=== PATIENT | female | born 1950 | race Caucasian/White ===

== ENCOUNTER 2017-05-07 06:49 | Emergency (ER) | payer OTHER ==
--- NOTE | ~2017-05-07 | CR72 ---
[facility] A Service of [facility] RADIOLOGY TEXT RESULTS PATIENT: MELBA HUGHES LOCATION: [facility] : 49 UNIT #: [id number] AGE: [address]: Tyler Wild MD SEX: F ORDER DR: [id number] [facility] [address] [place], [place] [address] [id number] MR#: [id number] Acc #: [id number] NAME: MELBA HUGHES. : 1950 SEX: F STUDY DATE/TIME: 05/07/2017 7:58 UNIT: [facility] ROOM: STUDY DESCRIPTION: CR Chest Single View Portable Attending Physician: Tyler Wild M.D. Ordering Physician: Tyler Wild M.D. Primary Care Physician: Laure Feliz M.D. MEDICAL IMAGING REPORT This report is preliminary unless electronic signature is present EXAM Portable chest HISTORY Cough and difficulty breathing worsening over the past 2 weeks. TECHNIQUE A single AP view of the chest was obtained. FINDINGS Bony structures are unremarkable. Heart size is upper limits of normal. No abnormal mediastinal widening is seen. Pulmonary vascular markings are normal. There is a questionable 1 cm nodule in the left upper lung field. The density is at the site where 2 ribs intersect. Recommend further evaluation of this area with shallow oblique views. No pleural fluid is seen. IMPRESSION 1. Normal vascular markings. No focal infiltrates are seen. 2. Question of a 1 cm nodule in the left upper lung field versus rib shadow artifact. This could be better evaluated with bilateral shallow oblique views to separate the ribs in this area. Dictated by... Morris Lazo M.D. THIS IS AN ELECTRONICALLY VERIFIED REPORT Morris Lazo M.D. at 05/07/2017 4:49 PM RLF/ni TD: 05/07/2017 14:06 [facility] A Service [facility] RADIOLOGY TEXT RESULTS PATIENT: MELBA HUGHES LOCATION: [facility] : 49 UNIT #: [id number] AGE: [address]: Tyler Wild MD SEX: F ORDER DR: IGNACIA #: [id number] MEDICAL IMAGING REPORT Page 1 of 1 COPY
--- NOTE | ~2017-05-07 | EKG ---
PATIENT: MELBA HUGHES UNIT #: [id number] Ventricular Rate: 63 BPM Atrial Rate: 63 BPM P-R Interval: 184 ms QRS Duration: 108 ms Q-T Interval: 422 ms QTC Calculation(Bezet): 431 ms P [place]: 66 degrees Calculated R [place]: 69 degrees Calculated T [place]: 26 degrees Diagnosis Line: Normal sinus rhythm Diagnosis Line: Normal ECG Diagnosis Line: Diagnosis Line: Confirmed by ERICKSON HALL MD ([id number]) on 05/12/2017 Diagnosis Line: 2:31:35 PM INTERPRETING MD: ISABEL ZIMMERMAN
[2017-05-07 08:00] LABS: POC - CKMB 3.5 ng/mL (0.0-7.9); POC - TROPONIN <0.05 ng/mL (<=0.05)
[2017-05-07 08:03] LABS: BASOPHIL# 0.1 X10e3 (0-0.3); BASOPHIL% 0.7 % (0-2.5); EOSINOPHIL# 1.3 X10e3 (0-0.7); EOSINOPHIL% 14.5 % (0.0-7.0); HEMATOCRIT 40.2 % (35.0-45.0); HEMOGLOBIN 13.1 gm/dL (12.0-16.0); LYMPHOCYTE# 2.1 X10e3 (1.0-3.5); LYMPHOCYTE% 22.9 % (17.0-45.0); MEAN CELL VOLUME 92.3 FL (83-96); MEAN CORPUSCULAR HEMOGLOBIN 30.1 PG (28-34); MEAN CORPUSCULAR HGB CONC 32.6 g/dL (30-36); MEAN PLATELET VOLUME 10.1 FL (6.5-11.5); MONOCYTE# 0.5 X10e3 (0-1.0); NEUTROPHIL% 55.9 % (40-75); PLATELET COUNT 229 X10e3 (140-420); RED BLOOD COUNT 4.35 X10e (3.90-5.30); RED CELL DISTRIBUTION WIDTH 13.9 % (11.0-15.5)
[2017-05-07 08:19] LABS: DIFF IND NO
[2017-05-07 08:30] LABS: ALBUMIN SERUM 4.1 g/dL (3.5-5.0); BILIRUBIN, DIRECT 0.1 mg/dL (0.0-0.2); BILIRUBIN,INDIRECT 0.7 mg/dL (0.0-0.9); BILIRUBIN,TOTAL 0.8 mg/dL (0.2-2.0); BUN/CREATININE RATIO 19.09; CALCIUM SERUM 9.5 mg/dL (8.4-10.2); CREATININE SERUM 1.1 mg/dL (0.6-1.4); GLOM FILT RATE Estimated 51.9 mL/min (>60); POTASSIUM 3.7 mmol/L (3.5-5.1); PROTEIN TOTAL SERUM 7.5 g/dL (6.0-8.3)
[2017-05-07 09:30] LABS: POC - CKMB 4.4 ng/mL (0.0-7.9); POC - TROPONIN <0.05 ng/mL (<=0.05)
[2017-05-08] MEDS ORDERED: ZITHROMAX PO (13:18)
[2017-05-08] MEDS ORDERED: TESSALON PERLE100 M1 PO (13:21)
[2017-05-08] MEDS ORDERED: PREDNISONE10 MG PO (13:21)
[2017-05-08] MEDS ORDERED: VOLTAREN75 MG PO (13:22)
[2017-05-08] MEDS ORDERED: EFFEXOR XR75 MG PO (13:22)
[2017-05-08] MEDS ORDERED: BENAZEPRIL HCL40 MG PO (13:22)
[2017-05-08] MEDS ORDERED: MONTELUKAST SOD10 MG PO (13:23)
[2017-05-08] MEDS ORDERED: HYDROCHLOROTHIA25 MG PO (13:23)
[2017-05-08] MEDS ORDERED: BAYER CHEWABLE81 MG PO (13:23)
[2017-05-08] MEDS ORDERED: ZOCOR20 MG PO (13:23)
[2017-05-08] MEDS ORDERED: ZYRTEC10 M1 PO (13:24)
== END 2017-05-07 11:14 | disposition home or self-care (01) ==
LOC: CED 06:49
PROVIDERS: Emergency Medicine
DX: J44.9 Chronic obstructive pulmonary disease, unspecified (principal); I10 Essential (primary) hypertension; E11.9 Type 2 diabetes mellitus without complications; F17.210 Nicotine dependence, cigarettes, uncomplicated
CPT/HCPCS: 36415; 71010; 80048; 80076; 82553; 84484; 85025; 93005; 94640; 96374; 99285; J2930

== ENCOUNTER 2017-05-08 12:31 | Inpatient (IN) | payer OTHER ==
--- NOTE | ~2017-05-08 | OR ---
Unit #: [id number] #: [id number] Patient: MELBA HUGHES [id number] [address] [address] [id number] I MR#: [id number] NAME: MELBA HUGHES. ROOM: 327 Date of Procedure: Admission Date: 05/08/2017 Surgeon: Sirena Marrufo M.D. : 1950 Attending Physician: Jaz Rajan M.D. Primary Care Physician: Laure Feliz M.D. PROCEDURE OPERATIVE NOTE PROCEDURE PERFORMED Diagnostic bronchoscopy. INDICATION Pneumonia. PRE-PROCEDURE DIAGNOSIS Pneumonia. POST PROCEDURE DIAGNOSIS Pneumonia. DETAILS OF THE PROCEDURE After taking consent from the patient explaining the risks and benefits, the patient was placed in a proper position. Bronchoscope introduced through the oral cavity. Vocal cords appeared to be symmetrically moving towards the midline. Trachea was normal. Araceli was sharp. We examined the right upper, right middle, right lower lobe, left upper lobe, lingula and left lower lobe. Thick mucous plugs in both lungs which were therapeutically suctioned. Then, we did a bronchoalveolar lavage in the right middle lobe area with 100 mL of saline in and 20 mL back. No endobronchial lesion was found. The patient tolerated the procedure very well. No complications happened. Dictated by... Génesis Danielle/kathy TD: 05/10/2017 10:54 JOB #: [id number] Unit #: [id number] #: [id number] Patient: MELBA HUGHES PROCEDURE OPERATIVE NOTE Page 1 of 1 X Sirena Marrufo MD PROCEDURE OPERATIVE NOTE
--- NOTE | ~2017-05-08 | DS ---
Unit #: [id number] #: [id number] Patient: MELBA HUGHES [id number] [address] [address] [id number] I MR#: [id number] NAME: MELBA HUGHES. ROOM: 327 Age: 66 Sex: F Admission Date: 05/08/2017 : 1950 Discharge Date: 05/11/2017 Attending Physician: Jaz Rajan M.D. Primary Care Physician: Laure Feliz M.D. DISCHARGE SUMMARY FINAL DIAGNOSIS 1. Acute hypoxic respiratory failure. 2. Acute exacerbation of chronic obstructive pulmonary disease. 3. Pneumonia. 4. Leukocytosis, which has improved. 5. Depression. 6. Tobacco abuse. 7. Hypertension. 8. Hyperlipidemia. DISCHARGE MEDICATIONS 1. Prednisone, tapering dose. 2. Symbicort 160/4.5 one puff twice a day. 3. Effexor 75 mg p.o. every day. 4. Zyrtec 10 mg every day. 5. Tessalon Perles on a p.r.n. basis for cough. 6. Hydrochlorothiazide 25 mg every day. 7. Zocor 20 mg at bedtime. 8. Benazepril 40 mg every day. 9. Singulair 10 mg every day. 10. Aspirin 81 mg every day. 11. Diclofenac on p.r.n. basis. 12. Omnicef 300 mg p.o. b.i.d. (please note patient received IV ceftriaxone and IV Zithromax during hospitalization.) CONSULTATIONS DURING HOSPITALIZATION 1. Dr. Marrufo from pulmonary services. 2. Primary care provider, Dr. Feliz. PROCEDURE PERFORMED DURING HOSPITALIZATION Diagnostic bronchoscopy, which was done by Dr. Marrufo on 05/10/17. Vocal cords appeared to be symmetrically moving towards the midline. Trachea was normal. Carinii was sharp. Right upper, right middle, right lower lobe, left upper lobe, lingula, and left lower lobe were examined. Thick mucous plugs in both lungs, which were therapeutically suctioned. Bronchoalveolar lavage was done. No endobronchial lesions were found. HOSPITAL COURSE Ms. Chandra is a 66-year-old female who was admitted to the hospital with shortness of breath and coughing and wheezing. Patient was diagnosed with pneumonia as outpatient and received p.o. antibiotics. She did not feel better, came to ER, and was admitted. Patient was diagnosed with acute hypoxic respiratory failure, pneumonia, acute COPD exacerbation, and hypokalemia. Patient was treated with IV Rocephin and IV Zithromax. IV Unit #: [id number] #: [id number] Patient: MELBA HUGHES Solu-Medrol was given for bronchospasm. Patient received bronchodilator nebulizer treatment in the hospital. Patient is doing much better at this time and antibiotics and steroids are being changed to p.o. Patient did have hypokalemia on admission, which has resolved. Potassium replacement was done. Leukocytosis most likely is secondary to steroid. It is tapering down. Recent WBC count is 17. That needs to be checked as outpatient. EXAMINATION ON DISCHARGE VITAL SIGNS: Blood pressure 126/70, respiratory rate 18, pulse is 61, temperature 97.4, and oxygen saturation is 95%. HEENT: Head is normocephalic. CHEST: Fair air entry. Few wheezing heart. CVS: S1 and S2 positive. Regular rhythm. ABDOMEN: Soft. DISCHARGE INSTRUCTIONS 1. Patient is being discharged home in stable condition. 2. Follow up with primary care provider in one week. 3. Follow up with Dr. Marrufo in two weeks. 4. Please note bronch culture is pending at this time. That needs to be followed up as outpatient. Dictated by... Génesis Goyal TD: 05/12/2017 09:39 JOB #: [id number] DISCHARGE SUMMARY Page 1 of 1 X Jaz Rajan MD X DISCHARGE SUMMARY
--- NOTE | ~2017-05-08 | CT16 ---
[facility] A Service of [facility] RADIOLOGY TEXT RESULTS PATIENT: MELBA HUGHES LOCATION: [facility] 327- : 49 UNIT #: [id number] AGE: [address]: Jaz Rajan MD SEX: F ORDER DR: [id number] [facility] [address] [place], [place] [address] [id number] I MR#: [id number] Acc #: [id number] NAME: MELBA HUGHES. : 1950 SEX: F STUDY DATE/TIME: 05/08/2017 15:20 UNIT: [address] ROOM: [facility] STUDY DESCRIPTION: CT Angio Chest for PE Attending Physician: Jaz Rajan M.D. Ordering Physician: Tyler Wild M.D. Primary Care Physician: Laure Feliz M.D. MEDICAL IMAGING REPORT This report is preliminary unless electronic signature is present EXAM CT angiogram chest with IV contrast. HISTORY Shortness of air for 1 week. Cough. TECHNIQUE IV contrast and CT angiogram of the chest was performed with 3-D reconstructions. This CT exam was performed with one or more of the following radiation dose reduction techniques: automatic exposure control, adjustment of mA and/or kV according to patient size, and iterative reconstruction. FINDINGS Moderate patchy subsegmental infiltrate in the anterior right upper lobe is nonspecific but could be secondary to pneumonia. There is also probable minimal subsegmental atelectasis in the medial right middle lobe and in the lingula. Mild emphysema primarily in the upper lobes. No pulmonary embolus is identified. Sensitivity is partly limited in evaluating the lower lobe pulmonary arteries due to respiratory motion artifact. Normal caliber central pulmonary arteries. No adenopathy. Partly calcified right paratracheal nodes and additional small calcified bilateral hilar nodes. Probable hypodense nodularity in the mid and lower right thyroid lobe measuring up to approximately 1.4 cm. Suggest further evaluation with thyroid ultrasound when clinically appropriate. Left thyroid lobectomy. IMPRESSION 1. No pulmonary embolus is identified. 2. Sensitivity is partly limited in evaluating the lower lobe pulmonary arteries due to respiratory motion artifact. 3. Siso-gi-xnmmauau patchy infiltrates in the anterior and inferior STS. [facility] A Service of [facility] RADIOLOGY TEXT RESULTS PATIENT: MELBA HUGHES LOCATION: [facility] 327-01 : [birth year] UNIT #: [id number] AGE: [address]: Jaz Rajan MD SEX: F ORDER DR: right upper lobe. Although nonspecific, this could be due to pneumonia. 4. Additional mild subsegmental atelectasis in the right middle lobe and in the lingula. 5. Probable nodularity in the right thyroid lobe measuring up to approximately 1.4 cm. Suggest further evaluation with thyroid ultrasound when clinically appropriate. Dictated by... Sylvain Kaminski M.D. THIS IS AN ELECTRONICALLY VERIFIED REPORT Sylvain Kaminski M.D. at 05/09/2017 10:35 PM ROLA/orlando TD: 05/09/2017 01:09 JOB #: [id number] MEDICAL IMAGING REPORT Page 1 of 1 COPY
--- NOTE | ~2017-05-08 | CO ---
Unit #: [id number] #: [id number] Patient: MELBA HUGHES [id number] [address] [address] [id number] I MR#: [id number] NAME: MELBA HUGHES. ROOM: 327 Age: 66 Sex: F Admission Date: 05/08/2017 : 1950 Attending Physician: Jaz Rajan M.D. Primary Care Physician: Laure Feliz M.D. CONSULTATION REPORT CHIEF COMPLAINT Shortness of breath. HISTORY OF PRESENT ILLNESS 66-year-old female with a past medical history of COPD, chronic bronchitis, depression, hypertension, presents with a complaint of cough, shortness of breath, increasing sputum production, chest discomfort, was recently treated with bronchitis and has not been getting any relief. Continues to smoke. CT chest PE protocol was done. No pulmonary embolism. Showed right upper lobe infiltrates. I am seeing the patient at bedside. Denies any nausea, vomiting, diarrhea. REVIEW OF SYSTEMS Positive for pallor. No edema, no cyanosis, no jaundice. PAST MEDICAL HISTORY 1. Hypertension. 2. COPD. 3. Depression. 4. Tobacco use. MEDICATIONS 1. Zithromax. 2. Prednisone. 3. Tessalon Perles. 4. Diclofenac. 5. Effexor. 6. Benazepril. 7. Hydrochlorothiazide. 8. Veronica aspirin. 9. Zocor. 10. Zyrtec. SURGICAL HISTORY 1. Thyroid surgery. 2. Fibroid tumor surgery. SOCIAL HISTORY One pack smoker per day. No alcohol or drug abuse. PHYSICAL EXAMINATION VITAL SIGNS: Temperature 98, pulse 87, respirations 12, blood pressure Unit #: [id number] #: [id number] Patient: MELBA HUGHES 130/70. NEUROLOGICAL: Awake, alert, oriented. No neuro deficit. HEENT: PERRLA. NECK: Supple. No JVD. CHEST: Bilateral air entry, bilateral mild rhonchi. GI: Nontender, soft. Bowel sounds positive. EXTREMITIES: No edema. SKIN: No rashes, no ulcers. LYMPHATIC: No lymphadenopathy. DIAGNOSTIC STUDIES Labs and imaging have been reviewed. ASSESSMENT AND PLAN 1. Right upper lobe pneumonia. 2. Acute exacerbation of chronic obstructive pulmonary disease. 3. Acute bronchitis. 4. Acute hypoxic respiratory failure. 5. Tobacco use. Plan is to admit the patient. Continue patient on current antibiotics including Rocephin, Zithromax, IV steroids, bronchodilators, GI and DVT prophylaxis, procalcitonin. Urine for legionella and pneumococcal antigen. Consideration for bronchoscopy. Smoking cessation counseling has been done. The patient will be closely monitored. Please see orders for detailed plan. Dictated by... Génesis Danielle/kathy TD: 05/10/2017 05:17 JOB #: [id number] CONSULTATION REPORT Page 1 of 1 X Sirena Marrufo MD X CONSULTATION REPORT
--- NOTE | ~2017-05-08 | CR72 ---
[facility] A Service of [facility] RADIOLOGY TEXT RESULTS PATIENT: MELBA HUGHES LOCATION: [facility] - : 49 UNIT #: [id number] AGE: [address]: Jaz Rajan MD SEX: F ORDER DR: [id number] [facility] [address] [place], [place] [address] [id number] I MR#: [id number] Acc #: [id number] NAME: MELBA HUGHES. : 1950 SEX: F STUDY DATE/TIME: 05/08/2017 13:16 UNIT: [address] ROOM: [facility] STUDY DESCRIPTION: CR Chest Single View Portable Attending Physician: Jaz Rajan M.D. Ordering Physician: Tyler Wild M.D. Primary Care Physician: Laure Feliz M.D. MEDICAL IMAGING REPORT This report is preliminary unless electronic signature is present EXAM Frontal chest, 05/08/2017. INDICATION 66-year-old female with cough and shortness of air. Symptoms 2 weeks. TECHNIQUE Frontal chest compared with 05/07/2017. FINDINGS Cardiac silhouette within normal limits. The vascularity is unremarkable. No effusion. There is a subtle area of faint atelectasis or infiltrate associated with the left heart border suggesting a lingular process. Imaging followup to resolution after appropriate therapy is recommended. No pneumothorax. Previously-described potential nodule in the upper lung zone on the left has no distinct correlate on today's examination and may have been artifactual. Please see the prior chest x-ray for further details. If concern for an underlying nodule persists, CT would be recommend for further characterization. IMPRESSION 1. Subtle opacity obscuring the left heart border suspicious for early lingular pneumonia or at least dense atelectasis. Imaging followup to resolution after appropriate therapy is recommended. 2. There is no evidence of pneumothorax. 3. Previously described nodular density in the upper lung zone on the left is not visible on the current examination. See discussion above regarding further evaluation with a chest CT if clinically desired or warranted. [facility] A Service of [facility] RADIOLOGY TEXT RESULTS PATIENT: MELBA HUGHES LOCATION: [place] [address] : [birth year] UNIT #: [id number] AGE: [address]: Jaz Rajan MD SEX: F ORDER DR: Dictated by... Abdelrahman Aguirre M.D. THIS IS AN ELECTRONICALLY VERIFIED REPORT Abdelrahman Aguirre M.D. at 05/09/2017 8:47 AM Tammie TD: 05/08/2017 22:59 JOB #: [id number] MEDICAL IMAGING REPORT Page 1 of 1 COPY
--- NOTE | ~2017-05-08 | EKG ---
PATIENT: MELBA HUGHES UNIT #: [id number] Ventricular Rate: 72 BPM Atrial Rate: 72 BPM P-R Interval: 168 ms QRS Duration: 98 ms Q-T Interval: 400 ms QTC Calculation(Bezet): 438 ms P [place]: 91 degrees Calculated R [place]: 34 degrees Calculated T [place]: 12 degrees Diagnosis Line: Normal sinus rhythm Diagnosis Line: Normal ECG Diagnosis Line: When compared with ECG of 07-MAY-2017 07:24, Diagnosis Line: (unconfirmed) Diagnosis Line: No significant change was found Diagnosis Line: Confirmed by ERICKSON HALL MD ([id number]) on 05/12/2017 Diagnosis Line: 2:47:41 PM INTERPRETING MD: ISABEL ZIMMERMAN
--- NOTE | ~2017-05-08 | HP ---
Unit #: [id number] #: [id number] Patient: MELBA HUGHES [id number] [address] [place], [place] [address] [id number] I MR#: [id number] NAME: MELBA HUGHES. ROOM: 327 Age: 66 Sex: F Admission Date: 05/08/2017 : 1950 Attending Physician: Jaz Rajan M.D. Primary Care Physician: Laure Feliz M.D. HISTORY AND PHYSICAL REVISED REPORT CHIEF COMPLAINT Shortness of breath, chest tightness. HISTORY OF PRESENTING ILLNESS Miss Chandra is a 66-year-old female who was seen by Dr. Feliz about apw-oxp-x-half weeks ago, was diagnosed with pneumonia and was given antibiotic. Patient does not remember the name of antibiotic but she was taking it twice a day and she finished on . She did well for two to three days but Wednesday again she started having cough with some sputum production, chest tightness, shortness of breath. She came to ER yesterday, was diagnosed with bronchitis and discharged on prednisone but she did not do well at all. She returned back today and is being admitted to hospital with pneumonia diagnosis and for IV antibiotic and failed p.o. antibiotic therapy. Patient is a smoker, smokes less than one pack per day, has been smoking for a long period of time. Patient does have a history of COPD. She does have nebulizer treatment at home. She does not complain of chills or fever but she says at nighttime she was just kind of shivering, does not complain of any chest pain, does not complain of any nausea and vomiting. She does complain of some abdominal pain but she thinks it is secondary to cough. No complaint of constipation or diarrhea and she did have some dizziness but no syncopal episode. PAST MEDICAL HISTORY 1. History of hypertension. 2. COPD. 3. Depression. 4. Tobacco abuse. HOME MEDICATION 1. Zithromax 250 daily. 2. Prednisone 10 mg daily. 3. Tessalon Perles 100 mg t.i.d. 4. Diclofenac 75 mg b.i.d. 5. Effexor 75 mg daily. 6. Benazepril 40 mg daily. 7. Hydrochlorothiazide 25 mg daily. 8. Veronica chewable 81 mg daily. 9. Singulair 10 mg q.h.s. 10. Zocor 20 mg q.h.s. 11. Zyrtec 10 mg nightly. PAST SURGICAL HISTORY Unit #: [id number] #: [id number] Patient: MELBA HUGHES History of thyroid surgery and fibroid tumor. ALLERGIES No known drug allergies. FAMILY HISTORY Patient's father had COPD and also coronary artery disease. SOCIAL HISTORY Patient smokes one pack per day for a long period of time, no history of alcohol abuse or drug abuse. REVIEW OF SYMPTOMS As per history of presenting illness. PHYSICAL EXAMINATION VITAL SIGNS: Patient is being examined in ER bed 1. Blood pressure is 128/65, respiratory rate 22, pulse is 80, temperature 98.8, oxygen saturation is 97%. HEENT: Head is normocephalic. Eye movements are normal. NECK: Neck is supple. CHEST: Has decreased air entry. Bilateral wheezing is heard. Crackles are heard on the right lower lobe. CVS: S1, S2 positive, regular rhythm, tachycardia. ABDOMEN: Soft. No tenderness. No rigidity. No rebound. No organomegaly. EXTREMITIES: Pulses are palpable. Negative edema. [employer]ER: Patient is awake, alert and oriented x3. No focal neurological deficit. DIAGNOSTIC STUDIES LABORATORY WORKUP: Troponin less than 0.05, sodium 136, potassium 3.3, chloride 101, BUN 19, creatinine 0.8, liver enzymes are stable, CPK 490, WBC 25.6, hemoglobin 12.4, hematocrit 38.4 and platelet count of 214. IMAGING: Chest x-ray PA one view was done which shows normal vascular marking. No focal infiltrates are seen. Question of a 1 cm nodule in the left upper lung field versus rib shadow artifact. ASSESSMENT Patient is being admitted to a telemetry unit with: 1. Pneumonia. 2. Acute chronic obstructive pulmonary disease exacerbation. 3. Hypokalemia. 4. Tobacco abuse. 5. Leukocytosis. 6. Hypertension. 7. Depression. PLAN Plan is admit to telemetry unit. IV Rocephin 1 g q.24 h. is being started. IV Zithromax 500 daily is being started. IV Solu-Medrol 60 mg q.6 h. Mini-neb treatment q.i.d. Home medications have been reviewed and adjusted. Potassium is going to be replaced. Tobacco cessation counseling has been done. Patient does not want any nicotine patch at this time. According to her, she has not smoked for five days or so. DVT prophylaxis is being started with Lovenox 40 mg subcu daily. Please refer to progress note for further orders. Unit #: [id number] #: [id number] Patient: MELBA HUGHES Dictated by Génesis Goyal/alvin TD: 05/08/2017 20:42 JOB #: [id number] CC: Sovera/invision Please Delete HISTORY AND PHYSICAL Page 1 of 1 X Jaz Rajan MD HISTORY AND PHYSICAL
[2017-05-08] MEDS ORDERED: ZITHROMAX PO (13:18)
[2017-05-08] MEDS ORDERED: PREDNISONE10 MG PO (13:21)
[2017-05-08] MEDS ORDERED: TESSALON PERLE100 M1 PO (13:21)
[2017-05-08] MEDS ORDERED: EFFEXOR XR75 MG PO (13:22)
[2017-05-08] MEDS ORDERED: BENAZEPRIL HCL40 MG PO (13:22)
[2017-05-08] MEDS ORDERED: VOLTAREN75 MG PO (13:22)
[2017-05-08] MEDS ORDERED: BAYER CHEWABLE81 MG PO (13:23)
[2017-05-08] MEDS ORDERED: ZOCOR20 MG PO (13:23)
[2017-05-08] MEDS ORDERED: MONTELUKAST SOD10 MG PO (13:23)
[2017-05-08] MEDS ORDERED: HYDROCHLOROTHIA25 MG PO (13:23)
[2017-05-08] MEDS ORDERED: ZYRTEC10 M1 PO (13:24)
[2017-05-08 13:35] LABS: POC - CKMB 19.9 ng/mL (0.0-7.9); POC - TROPONIN <0.05 ng/mL (<=0.05)
[2017-05-08 14:10] LABS: ALBUMIN SERUM 4.2 g/dL (3.5-5.0); BILIRUBIN, DIRECT 0.1 mg/dL (0.0-0.2); BILIRUBIN,INDIRECT 0.3 mg/dL (0.0-0.9); BILIRUBIN,TOTAL 0.4 mg/dL (0.2-2.0); BUN/CREATININE RATIO 23.75; CALCIUM SERUM 9.7 mg/dL (8.4-10.2); CREATININE SERUM 0.8 mg/dL (0.6-1.4); GLOM FILT RATE Estimated 76.4 mL/min (>60); POTASSIUM 3.3 mmol/L (3.5-5.1); PROTEIN TOTAL SERUM 7.7 g/dL (6.0-8.3)
[2017-05-08 14:23] LABS: BASOPHIL% 0.1 % (0-2.5); HEMATOCRIT 38.4 % (35.0-45.0); HEMOGLOBIN 12.4 gm/dL (12.0-16.0); LYMPHOCYTE# 1.1 X10e3 (1.0-3.5); LYMPHOCYTE% 4.4 % (17.0-45.0); MEAN CELL VOLUME 92.5 FL (83-96); MEAN CORPUSCULAR HEMOGLOBIN 29.9 PG (28-34); MEAN CORPUSCULAR HGB CONC 32.4 g/dL (30-36); MEAN PLATELET VOLUME 10.4 FL (6.5-11.5); MONOCYTE# 1.1 X10e3 (0-1.0); MONOCYTE% 4.4 % (3.0-12.0); NEUTROPHIL# 23.3 X10e3 (1.5-7.1); NEUTROPHIL% 91.1 % (40-75); PLATELET COUNT 214 X10e3 (140-420); RED BLOOD COUNT 4.15 X10e (3.90-5.30)
[2017-05-08 14:26] LABS: DIFF IND YES; WHITE BLOOD COUNT 25.6 X10e3 (4.0-10.5)
[2017-05-08 15:23] LABS: ANISOCYTOSIS SL; PLATELET ESTIMATE NORMAL (NORMAL)
[2017-05-09 06:53] LABS: HEMATOCRIT 38.5 % (35.0-45.0); HEMOGLOBIN 12.4 gm/dL (12.0-16.0); MEAN CELL VOLUME 92.8 FL (83-96); MEAN CORPUSCULAR HEMOGLOBIN 29.8 PG (28-34); MEAN CORPUSCULAR HGB CONC 32.1 g/dL (30-36); MEAN PLATELET VOLUME 10.4 FL (6.5-11.5); RED BLOOD COUNT 4.15 X10e (3.90-5.30); RED CELL DISTRIBUTION WIDTH 13.9 % (11.0-15.5); WHITE BLOOD COUNT 22.7 X10e3 (4.0-10.5)
[2017-05-09 07:00] LABS: BUN/CREATININE RATIO 21.11; CALCIUM SERUM 9.9 mg/dL (8.4-10.2); CREATININE SERUM 0.9 mg/dL (0.6-1.4); GLOM FILT RATE Estimated 66.2 mL/min (>60); POTASSIUM 4.6 mmol/L (3.5-5.1)
[2017-05-10 06:14] LABS: HEMATOCRIT 34.7 % (35.0-45.0); HEMOGLOBIN 11.2 gm/dL (12.0-16.0); MEAN CELL VOLUME 91.9 FL (83-96); MEAN CORPUSCULAR HEMOGLOBIN 29.8 PG (28-34); MEAN CORPUSCULAR HGB CONC 32.4 g/dL (30-36); MEAN PLATELET VOLUME 10.7 FL (6.5-11.5); RED BLOOD COUNT 3.77 X10e (3.90-5.30); RED CELL DISTRIBUTION WIDTH 13.9 % (11.0-15.5); WHITE BLOOD COUNT 23.6 X10e3 (4.0-10.5)
[2017-05-10 15:25] LABS: BODY FLUID APPEARANCE HAZY; BODY FLUID SOURCE BRONCHIAL LAVAGE
[2017-05-11 05:52] LABS: HEMATOCRIT 34.6 % (35.0-45.0); HEMOGLOBIN 11.3 gm/dL (12.0-16.0); MEAN CELL VOLUME 92.5 FL (83-96); MEAN CORPUSCULAR HEMOGLOBIN 30.1 PG (28-34); MEAN CORPUSCULAR HGB CONC 32.5 g/dL (30-36); MEAN PLATELET VOLUME 10.5 FL (6.5-11.5); RED BLOOD COUNT 3.74 X10e (3.90-5.30); RED CELL DISTRIBUTION WIDTH 13.8 % (11.0-15.5)
[2017-05-11] MEDS ORDERED: PREDNISONE PO (10:38)
[2017-05-11] MEDS ORDERED: SYMBICORT INH (10:38)
[2017-05-11] MEDS ORDERED: OMNICEF300 M1 PO (10:39)
== END 2017-05-11 11:15 | disposition home or self-care (01) | DRG 166 ==
LOC: CED 12:31 → CEDOF 18:49 → C3A PCU 18:49
PROVIDERS: Emergency Medicine; Internal Medicine; Physician Assistant Medical
PROC: B32TYZZ Computerized Tomography (CT Scan) of Left Pulmonary Artery using Other Contrast (ICD-10-PCS; 2017-05-08)
PROC: B32SYZZ Computerized Tomography (CT Scan) of Right Pulmonary Artery using Other Contrast (ICD-10-PCS; 2017-05-08)
PROC: 0B9M8ZZ Drainage of Bilateral Lungs, Via Natural or Artificial Opening Endoscopic (ICD-10-PCS; principal; 2017-05-10 09:53)
PROC: 0B9D8ZX Drainage of Right Middle Lung Lobe, Via Natural or Artificial Opening Endoscopic, Diagnostic (ICD-10-PCS; 2017-05-10 09:53)
DX: J96.01 Acute respiratory failure with hypoxia (principal); J18.9 Pneumonia, unspecified organism; J44.0 Chronic obstructive pulmonary disease with (acute) lower respiratory infection; I10 Essential (primary) hypertension; D72.829 Elevated white blood cell count, unspecified; E11.9 Type 2 diabetes mellitus without complications; J44.1 Chronic obstructive pulmonary disease with (acute) exacerbation; F17.200 Nicotine dependence, unspecified, uncomplicated; F32.9 Major depressive disorder, single episode, unspecified; E78.5 Hyperlipidemia, unspecified; E87.6 Hypokalemia; Z79.82 Long term (current) use of aspirin; Z83.6 Family history of other diseases of the respiratory system; Z82.49 Family history of ischemic heart disease and other diseases of the circulatory system; T38.0X5A Adverse effect of glucocorticoids and synthetic analogues, initial encounter; Y92.9 Unspecified place or not applicable; M19.90 Unspecified osteoarthritis, unspecified site
CPT/HCPCS: 36415; 71010; 71275; 80048; 80076; 82308; 82550; 82553; 82947; 83880; 84484; 85025; 85027; 87070; 87102; 87116; 87205; 87206; 87252; 87254; 87278; 87449; 87899; 88108; 88305; 88312; 89051; 93005; 94640; 94760; 99285; C9113; J0171; J0456; J0696; J1650; J2920; J2930; Q9967

== ENCOUNTER 2017-06-03 09:54 | Inpatient (IN) | payer OTHER ==
[~2017-06-03] VITALS: Ht 172.7 cm; Wt 78.2 kg
--- NOTE | ~2017-06-03 | DS ---
Unit #: [id number] #: [id number] Patient: MELBA REED [id number] [address] [address] [id number] I MR#: [id number] NAME: MELBA REED ROOM: 579 Age: 66 Sex: F Admission Date: 06/03/2017 : 1950 Discharge Date: 06/07/2017 Attending Physician: Benson Ventura M.D. Primary Care Physician: Laure Feliz M.D. DISCHARGE SUMMARY FINAL DIAGNOSES 1. Acute hypoxic respiratory failure. 2. Acute exacerbation of chronic obstructive pulmonary disease. 3. Hypertension. 4. Depression. 5. Hyperglycemia. Most likely secondary to steroids. The patient does have a history of diabetes mellitus, controlled with diet per the patient. 6. Tobacco abuse. 7. Hypertension. DISCHARGE MEDICATIONS 1. Prednisone tapering dose. 2. Doxycycline 100 mg p.o. b.i.d. until 06/10/2017. 3. Mucinex 600 mg p.o. b.i.d. 4. Nebulizer treatment with albuterol and Atrovent q.i.d. and q.4 h. p.r.n. 5. Home O2 2 liters per nasal cannula. 6. Zyrtec 10 mg daily. 7. Hydrochlorothiazide 25 mg daily. 8. Lotensin 40 mg daily. 9. Singulair 10 mg daily. 10. Glucophage 500 mg b.i.d. 11. Aspirin 81 mg daily. 12. [place] Nasal [place] 4-[address] Marrufo/Dr. Zepeda from pulmonary services. DIAGNOSTIC DATA LABORATORY: On discharge, white blood cell count 14.3, hemoglobin 12.8, hematocrit 39.1, platelets 222, Glucose 182. BMP shows sodium 140, potassium 3.8, chloride 102, BUN 16, creatinine 0.7, calcium 10.0. Blood cultures times two no growth. Hemoglobin A1c 6.0. HOSPITAL COURSE Ms. Reed is a 66-year-old female who was admitted with shortness of breath and chest tightness. The patient was recently discharged from the hospital. The patient continued to smoke at home. Diagnosed with acute exacerbation of chronic obstructive pulmonary disease. Again the patient was treated with bronchodilator, IV antibiotics and nebulizer treatment. She is feeling much better at this time. Six minute walking test was performed and saturation dropped to 79% after 3 minutes. The patient is being arranged 2 liters nasal cannula for home. Nebulizer treatment is Unit #: [id number] #: [id number] Patient: MELBA REED being arranged for home. Tobacco cessation counseling has been done. The patient will be discharged one nicotine patches. The patient verbalizes understanding. PHYSICAL EXAMINATION VITALS: On discharge, blood pressure 156/78, respiratory rate 16, pulse 96, temperature 97.8, oxygen saturation 93%. HEENT: Head is normocephalic. CHEST: Fair air entry. HEART: Regular rhythm. ABDOMEN: Soft. EXTREMITIES: Negative edema. DISCHARGE INSTRUCTIONS 1. The patient is being discharged home in stable condition. 2. Medications as per medication reconciliation. 3. Follow up with primary care provider in one week. 4. Tobacco cessation counseling done. 5. CBC and BMP in one week. 6. Check blood sugars at home. Dictated by... Génesis Goyal TD: 06/09/2017 09:07 JOB #: [id number] DISCHARGE SUMMARY Page 1 of 1 X Jaz Rajan MD X DISCHARGE SUMMARY
--- NOTE | ~2017-06-03 | CR72 ---
[facility] A Service of [facility] RADIOLOGY TEXT RESULTS PATIENT: MELBA HUGHES LOCATION: [facility] [address] : [birth year] UNIT #: [id number] AGE: [address]: Benson Ventura MD SEX: F ORDER DR: [id number] [facility] [address] [place], [place] [address] [id number] MR#: [id number] Acc #: [id number] NAME: MELBA HUGHES : 1950 SEX: F STUDY DATE/TIME: 06/03/2017 UNIT: [facility] ROOM: STUDY DESCRIPTION: CR Chest Single View Portable Attending Physician: Deisi Antunez M.D. Ordering Physician: Deisi Antunez M.D. Primary Care Physician: Laure Feliz M.D. MEDICAL IMAGING REPORT This report is preliminary unless electronic signature is present EXAM Chest portable 06/03/2017 1035 hours HISTORY 66-year-old woman complaining of shortness of air today. History of hypertension and diabetes. COMPARISON CT chest and chest x-ray 05/08/2017 FINDINGS Single portable upright chest demonstrates normal cardiac, mediastinal and hilar contours. Pulmonary vascularity is normal. There is no definite acute pulmonary density or pleural effusion. IMPRESSION No acute cardiopulmonary findings. Dictated by... Lois Woodruff M.D. THIS IS AN ELECTRONICALLY VERIFIED REPORT Lois Woodruff M.D. at 06/03/2017 2:31 PM Haleigh TD: 06/03/2017 10:58 JOB #: [id number] MEDICAL IMAGING REPORT Page 1 of 1 COPY
--- NOTE | ~2017-06-03 | HP ---
Unit #: [id number] #: [id number] Patient: MELBA REED [id number] [address] [place], [place] [address] [id number] I MR#: [id number] NAME: MELBA REED ROOM: 579 Age: 66 Sex: F Admission Date: 06/03/2017 : 1950 Attending Physician: Benson Ventura M.D. Primary Care Physician: Laure Feliz M.D. HISTORY AND PHYSICAL ADMISSION DIAGNOSES 1. Acute hypoxic respiratory failure. 2. Exacerbation of chronic obstructive pulmonary disease. 3. Hypertension. 4. Dyslipidemia. 5. Depression. HISTORY OF PRESENT ILLNESS Ms. Reed is a 66-year-old female patient of Dr. Feliz, well known to us secondary to prior admissions, who was recently discharged from our service at the beginning of this month. She continued with the complaints of increasing shortness of air and dyspnea, along with some nonproductive cough. Denies any fever or chills. Denies any headache, dizziness. Denies any chest pain, nausea, vomiting, diarrhea or abdominal pain. REVIEW OF SYSTEMS This patient is negative except as above. PAST MEDICAL HISTORY Secondary to a history of hypertension, COPD, depression, and diabetes. PAST SURGICAL HISTORY Significant for uterine fibroid surgery and thyroid surgery. HOME MEDICATIONS She takes diclofenac, benazepril, hydrochlorothiazide, baby aspirin, Singulair, and Zyrtec. ALLERGIES No known drug allergies. SOCIAL HISTORY Continues to smoke. Denies any alcohol or illicit drugs. FAMILY HISTORY Unremarkable. PHYSICAL EXAMINATION GENERAL APPEARANCE: Patient is a 66-year-old, female in no acute distress. VITAL SIGNS: BP 134/73, heart rate 73, respirations 18, temperature 98. HEENT: Head is atraumatic. Pupils equal, round, and reactive to light and accommodation. Extraocular muscles intact. Oropharynx clear. NECK: Supple. No mass. No JVD. No bruits. Unit #: [id number] #: [id number] Patient: MELBA REED CHEST: Diminished bilaterally with some expiratory wheezing. CARDIOVASCULAR: S1 and S2. No murmurs. ABDOMEN: Soft, nontender, and nondistended. LOWER EXTREMITIES: Without cyanosis, clubbing, or edema. NEUROLOGIC: Patient grossly intact. No focal deficits. DIAGNOSTIC STUDIES IMAGING STUDIES: Chest x-ray unremarkable. LABORATORY STUDIES: Chemistry is significant for blood glucose of 147. Set of cardiac enzymes negative. Hematology unremarkable. ASSESSMENT 1. No acute hyperoxic respiratory failure. 2. Acute exacerbation of COPD. 3. Hypertension. 4. Diabetes. 5. Dyslipidemia. 6. GI and DVT prophylaxis on PPI and Lovenox. PLAN 1. DuoNeb q.4 hours; Pulmicort inhaler b.i.d.; Solu-Medrol 80 mg IV t.i.d. 2. Pulmonary evaluation. 3. Check hemoglobin A1c. 4. Hyperglycemia with the sliding scale insulin. Dictated by Kerwin Downey M.D. OC/ts TD: 06/04/2017 06:04 JOB #: [id number] HISTORY AND PHYSICAL Page 1 of 1 X Kerwin Downey MD X HISTORY AND PHYSICAL
--- NOTE | ~2017-06-03 | EKG ---
PATIENT: MELBA HUGHES UNIT #: [id number] Ventricular Rate: 72 BPM Atrial Rate: 72 BPM P-R Interval: 158 ms QRS Duration: 96 ms Q-T Interval: 408 ms QTC Calculation(Bezet): 446 ms P [place]: 77 degrees Calculated R [place]: 83 degrees Calculated T [place]: 36 degrees Diagnosis Line: Normal sinus rhythm Diagnosis Line: Normal ECG Diagnosis Line: When compared with ECG of 08-MAY-2017 13:12, Diagnosis Line: No significant change was found Diagnosis Line: Confirmed by NORBERTO HERNANDEZ MD ([id number]) on Diagnosis Line: 06/03/2017 1:34:32 PM INTERPRETING MD: DAVID ZIMMERMAN
--- NOTE | ~2017-06-03 | CO ---
Unit #: [id number] #: [id number] Patient: MELBA HUGHES [id number] [address] [address] [id number] I MR#: [id number] NAME: MELBA HUGHES ROOM: 579 Age: 66 Sex: F Admission Date: 06/03/2017 : 1950 Attending Physician: Benson Ventura M.D. Primary Care Physician: Laure Feliz M.D. Consultation Date: 06/03/2017 CONSULTATION REPORT REASON FOR CONSULT Shortness of breath. HISTORY OF PRESENT ILLNESS This is a very pleasant, 66-year-old, female with past medical history significant for COPD, hypertension, depression, and nicotine abuse who presented to the emergency room with a few-day history of progressive shortness of breath, productive cough sometimes of yellowish sputum and respiratory distress. Patient stated that she was here at the beginning of this month for a similar episode and she had a bronchoscopy with lavage. Patient recovered after that and she was doing okay until a few days ago when her symptoms developed again. Patient stated that this is her fourth or fifth time this year being sick with pneumonia or bronchitis. Patient continues to smoke, but she cut down now to five cigarettes. She is supposed to see Dr. Marrufo as an outpatient in the near future. PAST MEDICAL HISTORY 1. Hypertension. 2. COPD. 3. Depression. 4. Nicotine abuse. PAST SURGICAL HISTORY 1. Thyroid surgery. 2. Fibroid tumor removal. ALLERGIES No known drug allergies. FAMILY HISTORY COPD and coronary artery disease. SOCIAL HISTORY Patient smokes currently three cigarettes a day, but she was up to one pack per day. No history of alcohol or drug abuse. HOME MEDICATIONS 1. Zithromax. 2. Prednisone. 3. Diclofenac. 4. Effexor. Unit #: [id number] #: [id number] Patient: MELBA HUGHES 5. Benazepril. 6. Aspirin. 7. HCTZ. 8. Singulair. 9. Zocor. 10. Zyrtec. REVIEW OF SYSTEMS Twelve-point review of systems were obtained and were negative, except for what was mentioned in HPI. PHYSICAL EXAMINATION GENERAL: Patient is in acute respiratory distress. HEENT: Head atraumatic and normocephalic. EOMI. NECK: Supple. No JVD. No lymphadenopathy. CHEST: Bilateral diffuse crackles and wheezing. HEART: S1 and S2. No murmurs, gallops, or rubs. ABDOMEN: Soft and nontender. Bowel sounds positive. No hepatosplenomegaly. EXTREMITIES: No edema or cyanosis. SKIN: No rashes. 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 No focal motor/sensory deficit. DIAGNOSTIC STUDIES LABORATORY: Creatinine 0.7, bilirubin 1, and lactic acid. White blood count 6.7 and hemoglobin 12.7. ASSESSMENT 1. Acute exacerbation of chronic obstructive pulmonary disease. 2. Hypertension. 3. Depression. 4. Nicotine abuse. PLAN 1. Patient was counseled extensively regarding smoking cessation. I spent more than 10 minutes speaking about this issue and she is willing to try any method to quit. She is currently down to five cigarettes a day. 2. IV steroid and bronchodilator. 3. Mucolytics and antitussives. 4. Gentle IV hydration. 5. DVT prophylaxis. I would like to thank Dr. Downey for allowing me to be part of this patient's care. Dictated by... Génesis Tate TD: 06/04/2017 07:26 JOB #: [id number] Unit #: [id number] #: [id number] Patient: MELBA HUGHES CONSULTATION REPORT Page 1 of 1 X ALEM GODWIN MD CONSULTATION REPORT
[~2017-06-03 09:54] MED LIST: BAYER CHEWABLE81 MG PO; BENAZEPRIL HCL40 MG PO; EFFEXOR XR75 MG PO; HYDROCHLOROTHIA25 MG PO; MONTELUKAST SOD10 MG PO; OMNICEF300 M1 PO; PREDNISONE PO; PREDNISONE10 MG PO; SYMBICORT INH; TESSALON PERLE100 M1 PO; VOLTAREN75 MG PO; ZITHROMAX PO; ZOCOR20 MG PO; ZYRTEC10 M1 PO
[2017-06-03 10:36] LABS: POC - CKMB 3.9 ng/mL (0.0-7.9); POC - TROPONIN <0.05 ng/mL (<=0.05)
[2017-06-03 10:38] LABS: BASOPHIL% 0.6 % (0-2.5); EOSINOPHIL# 1.3 X10e3 (0-0.7); EOSINOPHIL% 19.5 % (0.0-7.0); HEMATOCRIT 37.5 % (35.0-45.0); HEMOGLOBIN 12.7 gm/dL (12.0-16.0); LYMPHOCYTE# 2.2 X10e3 (1.0-3.5); LYMPHOCYTE% 32.6 % (17.0-45.0); MEAN CELL VOLUME 92.1 FL (83-96); MEAN CORPUSCULAR HEMOGLOBIN 31.2 PG (28-34); MEAN CORPUSCULAR HGB CONC 33.9 g/dL (30-36); MEAN PLATELET VOLUME 9.6 FL (6.5-11.5); MONOCYTE# 0.5 X10e3 (0-1.0); MONOCYTE% 7.4 % (3.0-12.0); NEUTROPHIL# 2.7 X10e3 (1.5-7.1); NEUTROPHIL% 39.9 % (40-75); PLATELET COUNT 194 X10e3 (140-420); RED BLOOD COUNT 4.07 X10e (3.90-5.30); RED CELL DISTRIBUTION WIDTH 14.3 % (11.0-15.5); WHITE BLOOD COUNT 6.7 X10e3 (4.0-10.5)
[2017-06-03 10:46] LABS: DIFF IND NO
[2017-06-03 11:01] LABS: BILIRUBIN, DIRECT 0.1 mg/dL (0.0-0.2); BILIRUBIN,TOTAL 1.1 mg/dL (0.2-2.0); BUN/CREATININE RATIO 14.28; CALCIUM SERUM 9.2 mg/dL (8.4-10.2); CREATININE SERUM 0.7 mg/dL (0.6-1.4); GLOM FILT RATE Estimated 89.7 mL/min (>60); POTASSIUM 3.5 mmol/L (3.5-5.1); PROTEIN TOTAL SERUM 7.5 g/dL (6.0-8.3)
[2017-06-03] MEDS ORDERED: PATIENT'S PHARMACY (12:40)
[2017-06-03 14:13] LABS: POC - CKMB 2.2 ng/mL (0.0-7.9); POC - TROPONIN <0.05 ng/mL (<=0.05)
[2017-06-04 06:52] LABS: HEMATOCRIT 38.6 % (35.0-45.0); HEMOGLOBIN 12.4 gm/dL (12.0-16.0); MEAN CELL VOLUME 92.9 FL (83-96); MEAN CORPUSCULAR HEMOGLOBIN 29.9 PG (28-34); MEAN CORPUSCULAR HGB CONC 32.2 g/dL (30-36); MEAN PLATELET VOLUME 9.8 FL (6.5-11.5); RED BLOOD COUNT 4.15 X10e (3.90-5.30); RED CELL DISTRIBUTION WIDTH 14.2 % (11.0-15.5)
[2017-06-04 06:54] LABS: WHITE BLOOD COUNT 12.5 X10e3 (4.0-10.5)
[2017-06-04 07:20] LABS: BUN/CREATININE RATIO 11.11; CALCIUM SERUM 9.6 mg/dL (8.4-10.2); CREATININE SERUM 0.9 mg/dL (0.6-1.4); GLOM FILT RATE Estimated 66.2 mL/min (>60); POTASSIUM 3.5 mmol/L (3.5-5.1)
[2017-06-05 07:05] LABS: HEMATOCRIT 37.5 % (35.0-45.0); HEMOGLOBIN 12.5 gm/dL (12.0-16.0); LYMPHOCYTE# 1.5 X10e3 (1.0-3.5); LYMPHOCYTE% 9.5 % (17.0-45.0); MEAN CELL VOLUME 92.1 FL (83-96); MEAN CORPUSCULAR HEMOGLOBIN 30.7 PG (28-34); MEAN CORPUSCULAR HGB CONC 33.4 g/dL (30-36); MEAN PLATELET VOLUME 9.6 FL (6.5-11.5); MONOCYTE# 0.7 X10e3 (0-1.0); MONOCYTE% 4.3 % (3.0-12.0); NEUTROPHIL# 13.5 X10e3 (1.5-7.1); NEUTROPHIL% 86.2 % (40-75); PLATELET COUNT 217 X10e3 (140-420); RED BLOOD COUNT 4.07 X10e (3.90-5.30); RED CELL DISTRIBUTION WIDTH 14.3 % (11.0-15.5); WHITE BLOOD COUNT 15.7 X10e3 (4.0-10.5)
[2017-06-05 07:06] LABS: DIFF IND YES
[2017-06-05 07:58] LABS: BUN/CREATININE RATIO 22.85; CREATININE SERUM 0.7 mg/dL (0.6-1.4); GLOM FILT RATE Estimated 89.7 mL/min (>60); POTASSIUM 3.8 mmol/L (3.5-5.1)
[2017-06-05 08:38] LABS: PLATELET ESTIMATE NORMAL (NORMAL)
[2017-06-07 05:55] LABS: HEMATOCRIT 39.1 % (35.0-45.0); HEMOGLOBIN 12.8 gm/dL (12.0-16.0); MEAN CORPUSCULAR HEMOGLOBIN 30.4 PG (28-34); MEAN CORPUSCULAR HGB CONC 32.7 g/dL (30-36); MEAN PLATELET VOLUME 9.9 FL (6.5-11.5); RED BLOOD COUNT 4.21 X10e (3.90-5.30); RED CELL DISTRIBUTION WIDTH 14.4 % (11.0-15.5); WHITE BLOOD COUNT 14.3 X10e3 (4.0-10.5)
[2017-06-07] MEDS ORDERED: GLUCOPHAGE500 MG PO (12:30)
[2017-06-07] MEDS ORDERED: PREDNISONE PO (12:31)
[2017-06-07] MEDS ORDERED: NICOTINE PATCH1 EACH TD (12:31)
[2017-06-07] MEDS ORDERED: DOXYCYCLINE PO (12:32)
[2017-06-07] MEDS ORDERED: MUCINEX1200 MG PO (12:33)
[2017-06-07] MEDS ORDERED: ALBUTEROL 0.5ML INH (12:33)
[2017-06-07] MEDS ORDERED: OCEAN104 ML (12:35)
== END 2017-06-07 16:25 | disposition home or self-care (01) | DRG 189 ==
LOC: CED 09:54 → CEDOF 12:33 → C5C 12:33 → CED 13:15 → CEDOF 13:15 → C5C 13:44
PROVIDERS: Emergency Medicine; Family Medicine; Hospitalist; Physician Assistant Medical
DX: J96.01 Acute respiratory failure with hypoxia (principal); E11.65 Type 2 diabetes mellitus with hyperglycemia; I10 Essential (primary) hypertension; J44.1 Chronic obstructive pulmonary disease with (acute) exacerbation; F32.9 Major depressive disorder, single episode, unspecified; T38.0X5A Adverse effect of glucocorticoids and synthetic analogues, initial encounter; Y92.9 Unspecified place or not applicable; F17.210 Nicotine dependence, cigarettes, uncomplicated; E78.5 Hyperlipidemia, unspecified; Z79.82 Long term (current) use of aspirin; Z71.6 Tobacco abuse counseling
CPT/HCPCS: 36415; 71010; 80048; 80076; 82553; 82947; 83036; 83605; 83880; 84484; 85025; 85027; 87040; 93005; 94640; 94664; 94667; 94668; 94760; 96365; 96367; 96375; 99285; C9113; G0238; J0878; J1580; J1650; J1815; J2543; J2920; J2930; J3260; J3370; J3475